=== PATIENT | male | born 1965 | race Caucasian/White ===

== ENCOUNTER → 2017-02-14 | Outpatient (CLI) | payer OTHER ==
[~2017-02-14] MED LIST: DURICEF500 MG PO; EPI EZ PEN1 MG/ML IM; FLAGYL500 MG PO; HYDROCODONE BIT1 T11 PO; KEFLEX500 MG PO; KEFTAB500 MG PO; NKHM; OMNICEF250 MG/5 M PO; VICODIN 500 MG-1 TAB PO
[2017-02-14 11:12] LABS: ALBUMIN 3.6 gm/dl (3.1-4.5); ALKALINE PHOSPHATASE 88 U/L (45-117); BILIRUBIN, TOTAL 0.9 mg/dl (0.2-1.0); BUN 16 mg/dl (7-24); CARBON DIOXIDE 31 mmol/L (21-32); CHLORIDE 106 mmol/L (98-107); CHOLESTEROL 168 mg/dL (<200); EST GLOM FILT AFRICAN AMERICAN > 60 ml/min; GLUCOSE 121 mg/dL (65-99); HDL CHOLESTEROL 44 mg/dl (40-60); LDL CHOLESTEROL 104 mg/dL (9-159); POTASSIUM 4.4 mmol/L (3.5-5.1); SGOT/AST 16 IU/L (3-35); SGPT/ALT 30 U/L (12-78); SODIUM 142 mmol/L (136-145); TOTAL PROTEIN 6.9 gm/dL (6.4-8.2); TRIGLYCERIDES 99 mg/dl (<150); VLDL CHOLESTEROL 20 mg/dL (6-40)
[2017-02-14 11:19] LABS: THYROID STIM HORMONE (HS) 0.857 uIU/ml (0.358-4.75)
[2017-02-14 11:28] LABS: HEMOGLOBIN A1c 6.4 % (4.8-5.6)
== END | disposition home or self-care (01) ==
LOC: LAB 10:01
PROVIDERS: Family Medicine
DX: Z12.5 Encounter for screening for malignant neoplasm of prostate (principal); Z00.01 Encounter for general adult medical examination with abnormal findings; E11.9 Type 2 diabetes mellitus without complications; E66.9 Obesity, unspecified; Z72.0 Tobacco use

== ENCOUNTER 2017-07-07 02:26 | Emergency (ER) | payer OTHER ==
[~2017-07-07] VITALS: Ht 180.3 cm; Wt 99.8 kg
--- NOTE | ~2017-07-07 | EKG ---
[place], [place] ELECTROCARDIOGRAM REPORT NAME: MAGO ESTEVES UNIT #: [id number] ROOM: DOCTOR: SWETA OCAMPO,JACIEL BIRTHDATE: [birth year] DOS: 07/07/2017 TIME: 3:06 a.m. IMPRESSION: 1. Sinus rhythm. 2. Baseline artifact. 3. Incomplete right bundle-branch block. JACIEL SOL MD CM:EKGRPT:ELECTROCARDIOGRAM REPORT [id number] JACIEL SOL MD
[2017-07-07 03:04] LABS: BASO % 0.3 % (0.0-1.0); EOS # 0.1 10*3/uL (0.0-0.4); EOS % 1.6 % (1.0-4.0); HEMATOCRIT 43.1 % (42.0-52.0); HEMOGLOBIN 14.5 g/dl (14.0-18.0); LYMPH # 1.5 10*3/uL (1.3-4.4); LYMPH % 20.3 % (27.0-41.0); MEAN CELL VOLUME 96.6 fl (80.0-94.0); MEAN CORPUSCULAR HGB 32.5 pg (27.0-31.0); MEAN CORPUSCULAR HGB CONC 33.6 g/dl (33.0-37.0); MEAN PLATELET VOLUME 10.2 fl (9.6-12.3); MONO # 0.5 10*3/uL (0.1-1.0); MONO % 7.2 % (3.0-9.0); NEUT # 5.2 10*3/uL (2.3-7.9); NEUT % 70.5 % (47.0-73.0); PLATELET COUNT AUTOMATED 166 10*3/uL (130-400); RED BLOOD COUNT 4.46 10*6/uL (4.50-5.90); RED CELL DISTRI WIDTH 12.8 % (0-14.5); WHITE BLOOD COUNT 7.4 10*3/uL (4.8-10.8)
[2017-07-07 03:23] LABS: ALBUMIN 3.2 gm/dl (3.1-4.5); ALKALINE PHOSPHATASE 107 U/L (45-117); BUN 24 mg/dl (7-24); CHLORIDE 110 mmol/L (98-107); CREATININE 1.38 mg/dL (0.70-1.30); POTASSIUM 4.1 mmol/L (3.5-5.1); SGOT/AST 19 IU/L (3-35); SGPT/ALT 30 U/L (12-78); SODIUM 142 mmol/L (136-145); TOTAL PROTEIN 6.4 gm/dL (6.4-8.2)
[2017-07-07] MEDS ORDERED: PROAIR HFA8.5 GM INH (04:34)
[2017-07-07] MEDS ORDERED: ZITHROMAX250 MG PO (04:34)
[2017-07-07] MEDS ORDERED: PREDNISONE20 M1 PO (04:34)
== END 2017-07-07 04:59 | disposition home or self-care (01) ==
LOC: ED 02:26
PROVIDERS: Emergency Medicine Emergency Medical Services
DX: J20.9 Acute bronchitis, unspecified (principal); J32.9 Chronic sinusitis, unspecified; Z90.49 Acquired absence of other specified parts of digestive tract

== ENCOUNTER 2017-07-09 08:48 | Inpatient (IN) | payer OTHER ==
[~2017-07-09] VITALS: Ht 177.8 cm; Wt 99.8 kg
[~2017-07-09 08:48] MED LIST changes: +PREDNISONE20 M1 PO; +PROAIR HFA8.5 GM INH; +ZITHROMAX250 MG PO
[2017-07-09 08:53] VITALS: BP 137/78
[2017-07-09 09:33] LABS: BASO % 0.1 % (0.0-1.0); EOS % 0.3 % (1.0-4.0); HEMATOCRIT 43.4 % (42.0-52.0); HEMOGLOBIN 14.7 g/dl (14.0-18.0); LYMPH # 0.7 10*3/uL (1.3-4.4); LYMPH % 8.9 % (27.0-41.0); MEAN CELL VOLUME 96.7 fl (80.0-94.0); MEAN CORPUSCULAR HGB 32.7 pg (27.0-31.0); MEAN CORPUSCULAR HGB CONC 33.9 g/dl (33.0-37.0); MEAN PLATELET VOLUME 10.5 fl (9.6-12.3); MONO # 0.4 10*3/uL (0.1-1.0); MONO % 5.7 % (3.0-9.0); NEUT # 6.4 10*3/uL (2.3-7.9); NEUT % 84.5 % (47.0-73.0); PLATELET COUNT AUTOMATED 156 10*3/uL (130-400); RED BLOOD COUNT 4.49 10*6/uL (4.50-5.90); RED CELL DISTRI WIDTH 13.4 % (0-14.5); WHITE BLOOD COUNT 7.5 10*3/uL (4.8-10.8)
[2017-07-09 09:51] LABS: ALBUMIN 3.5 gm/dl (3.1-4.5); ALKALINE PHOSPHATASE 100 U/L (45-117); BUN 18 mg/dl (7-24); CHLORIDE 107 mmol/L (98-107); POTASSIUM 4.3 mmol/L (3.5-5.1); SGOT/AST 17 IU/L (3-35); SGPT/ALT 32 U/L (12-78); SODIUM 140 mmol/L (136-145); TOTAL PROTEIN 7.1 gm/dL (6.4-8.2); TROPONIN I < 0.015 ng/ml (<0.045)
[2017-07-09 11:07] VITALS: BP 110/56
--- NOTE | 2017-07-09 11:32 | NUR ---
PATIENTS MED REC CONFIRMED WITH PATIENTS SPOUSE.
--- NOTE | 2017-07-09 11:34 | NUR ---
A 51, admitted to 5E, under the services of ILDIA Henley DO with a diagnosis of COPD WITH ACUTE EXACERBATION. Chief complaint is SHORTNESS OF BREATH. Patient arrived via stretcher from ER. Monitor applied. Initial assessment completed. Vital signs taken and recorded. LIDIA HENLEY DO notified of admission to the unit. Orders received. See assessment for past medical history, medications and allergies. Patient and/or family oriented to unit. [facility] 5E Home medications were verified with spouse and Dr. Agustin. visitation policy reviewed. Clothing/patient valuable form completed. BRICE ANAND
[2017-07-09 12:00] VITALS: BP 117/59
[2017-07-09 16:00] VITALS: BP 103/59
[2017-07-09 20:00] VITALS: BP 139/65
[2017-07-10] VITALS: BP 117/58
--- NOTE | 2017-07-10 00:39 | NUR ---
24 HR chart check completed.
[2017-07-10 07:25] LABS: HEMATOCRIT 41.3 % (42.0-52.0); LYMPH # 0.6 10*3/uL (1.3-4.4); LYMPH % 5.9 % (27.0-41.0); MEAN CELL VOLUME 97.2 fl (80.0-94.0); MEAN CORPUSCULAR HGB 32.9 pg (27.0-31.0); MEAN CORPUSCULAR HGB CONC 33.9 g/dl (33.0-37.0); MEAN PLATELET VOLUME 10.5 fl (9.6-12.3); MONO # 0.5 10*3/uL (0.1-1.0); MONO % 4.5 % (3.0-9.0); NEUT # 9.1 10*3/uL (2.3-7.9); NEUT % 88.9 % (47.0-73.0); PLATELET COUNT AUTOMATED 163 10*3/uL (130-400); RED BLOOD COUNT 4.25 10*6/uL (4.50-5.90); RED CELL DISTRI WIDTH 13.2 % (0-14.5); WHITE BLOOD COUNT 10.3 10*3/uL (4.8-10.8)
[2017-07-10 07:49] LABS: BUN 17 mg/dl (7-24); CHLORIDE 108 mmol/L (98-107); CHOLESTEROL 159 mg/dL (<200); CREATININE 0.89 mg/dL (0.70-1.30); PHOSPHOROUS 3.4 mg/dL (2.5-4.9); POTASSIUM 4.3 mmol/L (3.5-5.1); SODIUM 141 mmol/L (136-145); TRIGLYCERIDES 61 mg/dl (<150); VLDL CHOLESTEROL 12 mg/dL (6-40)
[2017-07-10 08:00] VITALS: BP 116/63
[2017-07-10 08:00] LABS: HDL CHOLESTEROL 64 mg/dl (40-60); LDL CHOLESTEROL 83 mg/dL (9-159); THYROID STIM HORMONE (HS) 0.426 uIU/ml (0.358-4.75)
--- NOTE | 2017-07-10 08:00 | NUR ---
ASSUMED CARE OF PATIENT. PATIENT IS SITTING UP IN BED. PATIENT IS PLEASANT AND IN STABLE CONDITION.
--- NOTE | 2017-07-10 09:00 | NUR ---
Pressroom Supervisor in to talk to patient. Patient states lives at home with his and family. There are 0 steps in the home. Physician: Dudley Garcia Pharmacy: [facility] health services: none Patient's level of ADLs: INDEPENDENT Patient has working utilities: yes DME: nebulizer Follow-up physician's appointment after d/c: will be made by hospitalist nurse director upon discharge Does patient want to access PORTAL?: yes Discharge plan discussed with patient. He lives at home with his and family. He is independent in his ADLs and ambulation. When medically stable he will be discharged home. POWER MCDANIEL
[2017-07-10 12:00] VITALS: BP 118/59
[2017-07-10 16:00] VITALS: BP 117/67
[2017-07-10 20:00] VITALS: BP 134/77
[2017-07-11] VITALS: BP 123/64
--- NOTE | 2017-07-11 03:23 | NUR ---
PT GIVEN RESTPRIL PER PATIENT REQUEST FOR INSOMNIA. CALL LIGHT WITHIN REACH. WILL CONTINUE TO MONITOR.
[2017-07-11 08:00] VITALS: BP 156/74
--- NOTE | 2017-07-11 08:30 | NUR ---
Survey Worker in to see patient. Denies any home needs. When medically stable patient will be discharged home.
[2017-07-11] MEDS ORDERED: PREDNISONE10 MG PO (10:46)
[2017-07-11] MEDS ORDERED: DUONEB 3 MG/3 ML3 M1 INH (10:46)
[2017-07-11] MEDS ORDERED: LEVOFLOXACIN500 MG PO (10:46)
--- NOTE | 2017-07-11 11:54 | NUR ---
PT DISCHARGED AT THIS TIME. VSS. DISCHARGE INSTRUCTIONS REVIEWED AND HEPLOCK AND LABELING STRATEGIST DISCONTINUED. PT INSTRUCTED TO COURT INTERPRETER PRESCRIPTIONS AT [facility]. PT ALSO GIVEN THE NUMBER FOR LANCE BRASWELL HE IS INTERESTED IN SMOKING CESSATION CLASSES AND WAS NOT ABLE TO BE REACHED AT HIS OFFICE AT THE TIME OF DISCHARGE. PT AMBULATED OFF THE FLOOR WITH HIS .
== END 2017-07-11 11:54 | disposition home or self-care (01) | DRG 871 ==
LOC: ED 08:48 → 5E 10:18 → EDHOLD 10:18 → 5E 10:26
PROVIDERS: Nurse Practitioner Family; Student in an Organized Health Care Education/Training Program; ADMIT Internal Medicine
DX: A41.9 Sepsis, unspecified organism (principal); J18.9 Pneumonia, unspecified organism; J44.0 Chronic obstructive pulmonary disease with (acute) lower respiratory infection; J45.901 Unspecified asthma with (acute) exacerbation; J44.1 Chronic obstructive pulmonary disease with (acute) exacerbation; R73.9 Hyperglycemia, unspecified; E55.9 Vitamin D deficiency, unspecified; R03.0 Elevated blood-pressure reading, without diagnosis of hypertension; Z71.6 Tobacco abuse counseling; Z72.0 Tobacco use; Z83.3 Family history of diabetes mellitus

== ENCOUNTER → 2020-07-07 | Outpatient (CLI) | payer OTHER ==
[~2020-07-07] MED LIST changes: +DUONEB 3 MG/3 ML3 M1 INH; +LEVOFLOXACIN500 MG PO; +PREDNISONE10 MG PO
== END | disposition home or self-care (01) ==
LOC: COVID19 12:35
PROVIDERS: ATTEND Internal Medicine
DX: Z20.828 Contact with and (suspected) exposure to other viral communicable diseases (principal)

== ENCOUNTER 2023-07-08 13:05 | Emergency (ER) | payer OTHER ==
[~2023-07-08] VITALS: Ht 180.3 cm; Wt 88.5 kg
[2023-07-08] MEDS ORDERED: HYDROCODONE-AC1 EAC1 PO (14:03)
== END 2023-07-08 14:18 | disposition home or self-care (01) ==
LOC: ED 13:05
DX: H16.133 Photokeratitis, bilateral (principal); Z90.49 Acquired absence of other specified parts of digestive tract; Z90.89 Acquired absence of other organs; Z98.890 Other specified postprocedural states; F17.200 Nicotine dependence, unspecified, uncomplicated